=== PATIENT | female | born 1935 | race Caucasian/White ===

== ENCOUNTER 2017-10-28 00:47 | Emergency (ER) | payer MEDICARE ==
[~2017-10-28] VITALS: Ht 162.6 cm; Wt 61.2 kg
[2017-10-28] MEDS ORDERED: ATORVASTATIN 20 MG TABLET (01:00)
[2017-10-28] MEDS ORDERED: DONEPEZIL HCL 10 MG TABLET (01:00)
[2017-10-28] MEDS ORDERED: MEMANTINE HCL 5 MG TABLET (01:00)
[2017-10-28] MEDS ORDERED: CLOPIDOGREL 75 MG TABLET (01:00)
[2017-10-28] MEDS ORDERED: ASPI81TA31 (01:01)
--- NOTE | 2017-10-28 01:43 | NUR ---
Patient discharged to home in stable conditon. Written and verbal after care instructions given. Patient verbalizes understanding of instructions.
== END 2017-10-28 01:50 | disposition home or self-care (01) ==
LOC: ER 00:52
DX: S00.03XA Contusion of scalp, initial encounter (principal); F10.129 Alcohol abuse with intoxication, unspecified; M19.90 Unspecified osteoarthritis, unspecified site; Z79.82 Long term (current) use of aspirin; W18.30XA Fall on same level, unspecified, initial encounter; Y93.89 Activity, other specified; Y92.89 Other specified places as the place of occurrence of the external cause; Y99.8 Other external cause status
CPT/HCPCS: 70450; 72125; 99284; A4663

== ENCOUNTER 2019-02-11 15:02 | Inpatient (IN) | payer MEDICARE, BC ==
[~2019-02-11] VITALS: Ht 162.6 cm; Wt 61.2 kg
[~2019-02-11 15:02] MED LIST: ASPI81TA31; ATORVASTATIN 20 MG TABLET; CLOPIDOGREL 75 MG TABLET; DONEPEZIL HCL 10 MG TABLET; MEMANTINE HCL 5 MG TABLET
--- NOTE | 2019-02-11 15:15 | NUR ---
PT IS IN ROOM #2B. DR LINARES EVALUATED THE PT. PT IS UNDER DIRECT OBSERVATION OF [employer] OFFICERS. NO S/S OF ACUTE DISTRESS AT THIS TIME.
[2019-02-11 15:42] LABS: BASOPHILS # (AUTO) 0.1 K/uL (0.0-8.0); BASOPHILS % (AUTO) 0.7 % (0.0-2.0); EOSINOPHILS # (AUTO) 0.1 K/uL (0.0-0.7); EOSINOPHILS % (AUTO) 1.3 % (0.0-7.0); HEMOGLOBIN 13.1 g/dL (10.9-14.3); LYMPHOCYTES # (AUTO) 1.5 K/uL (20.0-40.0); MEAN CORPUSCULAR HGB CONC 34 g/dL (32.3-35.6); MEAN CORPUSCULAR VOLUME 83.5 fL (75.5-95.3); MONOCYTES # (AUTO) 0.7 K/uL (2.0-10.0); MONOCYTES % (AUTO) 9.3 % (0.0-11.0); NEUTROPHILS # (AUTO) 5.6 K/uL (1.8-8.9); NEUTROPHILS % (AUTO) 69.7 % (38.5-71.5); PLATELET COUNT (AUTO) 213 K/uL (179-408); RED BLOOD CELL COUNT(AUTO) 4.68 MIL/uL (3.63-4.92)
[2019-02-11 16:01] LABS: CARBON DIOXIDE 25 mmol/L (21-32); CHLORIDE 106 mmol/L (98-107); CREATININE 0.8 mg/dL (0.6-1.3); GLUCOSE 101 mg/dL (74-106); POTASSIUM 3.7 mmol/L (3.5-5.1); UREA NITROGEN, BLOOD 18 mg/dL (7-18)
[2019-02-11] MEDS ORDERED: BYSTOLIC (16:02)
[2019-02-11 16:04] LABS: ETHANOL < 3 MG/DL (0-0)
[2019-02-11 16:06] LABS: ALANINE AMINOTRANSFERASE 24 U/L (14-59); ALKALINE PHOSPHATASE 91 U/L (50-136); ASPARTATE AMINOTRANSFERASE 19 U/L (15-37); BILIRUBIN,DIRECT 0.1 mg/dL (0.0-0.2); BILIRUBIN,TOTAL 0.4 mg/dL (0.2-1.0); TOTAL PROTEIN, SERUM 6.8 g/dL (6.4-8.2)
[2019-02-11 16:17] LABS: ACETAMINOPHEN < 2.0 ug/mL (10-30)
[2019-02-11 16:18] LABS: THYROID STIMULATING HORMONE 1.128 mIU/mL (0.358-3.740)
--- NOTE | 2019-02-11 16:35 | NUR ---
REPORT WAS GIVEN TO RN MHU. PT WAS TRANSFERED TO ROOM #139.
[2019-02-11] MEDS ORDERED: TEMAZEPAM 7.5 MG CAPSULE PO PRN (17:30)
[2019-02-11] MEDS ORDERED: ACETAMINOPHEN 325 MG TABLET PO PRN (17:30)
[2019-02-11] MEDS ORDERED: ZOLPIDEM 5 MG TABLET PO PRN (17:30)
[2019-02-11] MEDS ORDERED: MAG HYDROX/AL HYDROX/SIMETH 30 ML LIQUID UDC PO PRN (17:30)
[2019-02-11] MEDS ORDERED: MAGNESIUM HYDROXIDE 30 ML LIQUID UDC PO PRN (17:30)
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
[2019-02-11] MEDS ORDERED: ATOR20TA PO (18:37)
[2019-02-11] MEDS ORDERED: NEBI5TAB8 PO (18:37)
[2019-02-11] MEDS ORDERED: CLOP75TA15 PO (18:38)
[2019-02-11] MEDS ORDERED: DONE10TA44 PO (18:39)
[2019-02-11 20:00] VITALS: BP 133/56
[2019-02-11] MEDS: LORAZEPAM 1 MG TABLET PO PRN (20:57)
[2019-02-11] MEDS ORDERED: LORAZEPAM 2 MG/1 ML VIAL IM ONE (21:00)
[2019-02-11] MEDS ORDERED: OLANZAPINE 10 MG VIAL IM ONE (21:00)
--- NOTE | 2019-02-11 22:00 | NUR ---
received to care, agitated, anxious, and restless. difficult to redirect. keeps asking the same questions over and over again. states she wants to leave. her current situation was explained to her, but she would not listen. she spoke to her children several times on the phone, but had no recollection. she became hostile, and verbally aggresive, posturing with he rfists at one point. the doctor was paged initially for an IM injection, and orders were obtained, but she calmed down slightly, and agreed to take PO ativan, at 2056. by 2099, she was calmer, lying in her bed, and reading a magazine. as of 2199, she appears to be asleep. no distress noted. will continue to monitor clsoely.
--- NOTE | 2019-02-12 06:00 | NUR ---
slept 7 hours. continues to sleep, no distress noted.
[2019-02-12 07:30] VITALS: BP 134/60
--- NOTE | 2019-02-12 15:00 | NUR ---
Gps/Supervisor Instrument Maintenance- patient was loud, wants to get out of here, informed her Psychiatrist Dr Armenta was in to see her today, this pm, and she is nor leaving yet. Patient claimed she does not remember talking to him, and she stated tcalling her Doctors names. Forgetful, needed cueing and redirections.
[2019-02-12] MEDS: LORAZEPAM 1 MG TABLET PO PRN (15:23)
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
[2019-02-12 16:00] VITALS: BP 103/52
--- NOTE | 2019-02-12 17:00 | NUR ---
Gps/Rock Dust Sprayer- Continue to demand to have her high heel shoes ishreji came in with. Informed pt,. heels are not aloud, informed family to bring her flat and closed shoes. Easily gets anxious, angel redirections, very forgetful, unable to fine her room, also noted patient kept pushing front door, informed this unit in a lock facility , claimed she needs to leave , does not belong here per pt.
--- NOTE | 2019-02-12 18:00 | NUR ---
Gps/Ashley Ruano came in to visit, questioned about why patient needed to stay here till friday, why cant she leave Friday instead, informed she just started with new Psych.meds. reviewed , needed to assess progress.Safety reviewed and emphasized.
[2019-02-12 20:24] VITALS: BP 137/56
[2019-02-12] MEDS: OLANZAPINE 2.5 MG TABLET PO SCH (20:40)
[2019-02-12] MEDS: MEMANTINE HCL 5 MG TABLET PO SCH (20:41)
[2019-02-12] MEDS: METOPROLOL TARTRATE 25 MG TABLET PO SCH (20:41)
--- NOTE | 2019-02-12 22:30 | NUR ---
received to care, anxious, and agitated. demanding to have her purse, and make up. staff reassured her, but she remained angry, slamming doors, and difficult to redirect. assited with phone calls to her family, but she immediately forgot that she placed them, not believing staff when told so. compliant with medications. PRN brayanien was given at 2143, and, as of 2229, she appears to be asleep. no distress noted. will continue to monitor closely.
--- NOTE | 2019-02-13 06:37 | NUR ---
slept 5 hours. continues to sleep, no distress noted.
[2019-02-13 07:30] VITALS: BP 125/42
[2019-02-13] MEDS: CLOPIDOGREL 75 MG TABLET PO SCH (09:09)
[2019-02-13] MEDS: DONEPEZIL 10 MG TABLET PO SCH (09:09)
[2019-02-13] MEDS: ASPIRIN 81 MG TAB.CHEW PO SCH (09:09)
[2019-02-13] MEDS: OLANZAPINE 2.5 MG TABLET PO SCH ×2 (09:09→20:34)
[2019-02-13] MEDS: MEMANTINE HCL 5 MG TABLET PO SCH ×2 (09:10→20:34)
[2019-02-13] MEDS: METOPROLOL TARTRATE 25 MG TABLET PO SCH ×2 (09:10→20:36)
[2019-02-13] MEDS: ATORVASTATIN 20 MG TABLET PO SCH (12:50)
[2019-02-13 16:07] VITALS: BP 135/51
[2019-02-13 20:55] VITALS: BP 112/54
[2019-02-14 07:30] VITALS: BP 115/56
[2019-02-14 09:00] VITALS: BP 115/56
[2019-02-14] MEDS: METOPROLOL TARTRATE 25 MG TABLET PO SCH (09:00)
[2019-02-14] MEDS: DONEPEZIL 10 MG TABLET PO SCH (09:14)
[2019-02-14] MEDS: CLOPIDOGREL 75 MG TABLET PO SCH (09:14)
[2019-02-14] MEDS: ATORVASTATIN 20 MG TABLET PO SCH (09:14)
[2019-02-14] MEDS: MEMANTINE HCL 5 MG TABLET PO SCH (09:14)
[2019-02-14] MEDS: ASPIRIN 81 MG TAB.CHEW PO SCH (09:14)
[2019-02-14] MEDS: OLANZAPINE 2.5 MG TABLET PO SCH (09:14)
--- NOTE | 2019-02-14 13:01 | NUR ---
PATIENT WAS DISCHARGED HOME TO FAMILY GRAND DAUGHTER AND DAUGHTER IN NO ACUTE DISTRESS WITH ALL BELONGINGS AND F/U INSTRUCTIONS AND HOME PRESCRIPTION WITH FULL UNDERSTANDING BY DAUGHTER , PATIENT REMAINS ANXIOUS AND DEMANDING PATIENT ESCORTED TO CAR VIA WHEEL CHAIR
--- NOTE | 2019-02-15 12:00 | NUR ---
Firearms Report: combination worker completed and submitted a [employer] firearms report for a 5150 DTS certification.
== END 2019-02-14 12:00 | disposition home or self-care (01) | DRG 885 ==
LOC: ER 15:04 → GPS 16:34
PROVIDERS: ADMIT Psychiatry & Neurology Psychiatry; ATTEND Nurse Practitioner Acute Care
DX: F32.3 Major depressive disorder, single episode, severe with psychotic features (principal); N18.9 Chronic kidney disease, unspecified; F03.91 Unspecified dementia, unspecified severity, with behavioral disturbance; E44.0 Moderate protein-calorie malnutrition; Z79.82 Long term (current) use of aspirin; Z79.899 Other long term (current) drug therapy; E78.5 Hyperlipidemia, unspecified; I25.10 Atherosclerotic heart disease of native coronary artery without angina pectoris; Z95.5 Presence of coronary angioplasty implant and graft; H54.62 Unqualified visual loss, left eye, normal vision right eye; Z86.73 Personal history of transient ischemic attack (TIA), and cerebral infarction without residual deficits; Z68.23 Body mass index [BMI] 23.0-23.9, adult; Z63.0 Problems in relationship with spouse or partner
CPT/HCPCS: 36415; 70030-TC; 70450; 71045; 83605; 84443; 85025; 85730; 87040; 93005; 97110; 97116; A4663; G0480; G0480-TC